=== PATIENT | male | born 1955 | race Caucasian/White ===

== ENCOUNTER 2017-04-10 09:34 | Emergency (ER) | payer BC, OTHER ==
[2017-04-10 09:42] VITALS: RESP 16; TEMP 98.3
--- NOTE | 2017-04-10 10:25 | ED PDOC ---
Arrival/HPI - General Chief Complaint: Upper Extremity Problem/Injury Time Seen by Provider: 04/10/17 09:45 Historian: Patient - History of Present Illness Narrative History of Present Illness (Text): 04/10/17 10:21 Patien t sts he has b/l shoulder and upper arm pain and stiffness every morning apon awakening. Sometimes these symptoms are associated with low back pain. Patient sts usually symptoms are getting better during the day, but come back in the morning again. 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 Patient sts he was seen by PMD and was told that pain is due to repetitive movement of his arms at work. Patient denies chest pain/SOB/fever. Patient is asymptomatic now. Activities at Onset: Sleeping Past Medical History - Provider Review Nursing Documentation Reviewed: Yes - Cardiac Hx Cardiac Disorders: Yes Hx Hypertension: Yes - Pulmonary Hx Respiratory Disorders: No - Neurological Hx Neurological Disorder: No - HEENT Hx HEENT Disorder: No - Renal Hx Renal Disorder: No - Endocrine/Metabolic Hx Endocrine Disorders: Yes Hx Diabetes Mellitus Type 2: Yes - Hematological/Oncological Hx Blood Disorders: No - Integumentary Hx Dermatological Disorder: No - Musculoskeletal/Rheumatological Hx Musculoskeletal Disorders: No - Gastrointestinal Hx Gastrointestinal Disorders: No - Genitourinary/Gynecological Hx Genitourinary Disorders: No - Psychiatric Hx Psychophysiologic Disorder: No Hx Substance Use: No - Surgical History Other/Comment: COLONOSCOPY - Anesthesia Hx Anesthesia: Yes Family/Social History - Physician Review Nursing Documentation Reviewed: Yes Family/Social History: Unknown Family HX Smoking Status: Never Smoked Hx Alcohol Use: Yes Hx Substance Use: No Allergies/Home Meds Allergies/Adverse Reactions: Allergies No Known Allergies Allergy (Verified 04/10/17 09:36) Home Medications: Home Meds Medication Instructions Recorded Confirmed metFORMIN [glucOPHAGE] 500 mg PO DAILY 05/03/16 04/10/17 Review of Systems - Physician Review All systems were reviewed & negative as marked: Yes - Review of Systems Musculoskeletal: Arthralgias, Myalgias Physical Exam Vital Signs Reviewed: Yes Vital Signs Temp Pulse Resp BP Pulse Ox 04/10/17 11:59 80 16 137/94 H 98 04/10/17 10:41 82 16 181/105 H 100 04/10/17 09:37 98.3 F 102 H 16 173/111 H 98 Blood Pressure: Hypertensive Appearance: Positive for: Well-Appearing, Non-Toxic, Comfortable Mental Status: Positive for: Alert and Oriented X 3 - Systems Exam Head: Present: Atraumatic, Normocephalic Neck: Present: Normal Range of Motion. No: MIDLINE TENDERNESS, Paraspinal Tenderness Respiratory/Chest: Present: Clear to Auscultation, Good Air Exchange. No: Accessory Muscle Use, Tender to Palpation Cardiovascular: Present: Regular Rate and Rhythm. No: Murmurs Abdomen: No: Tenderness, Distention Back: Present: Normal Inspection. No: Midline Tenderness, Paraspinal Tenderness Upper Extremity: Present: Normal Inspection, Normal ROM. No: Tenderness, Swelling Lower Extremity: Present: Normal Inspection, NORMAL PULSES, Normal ROM. No: Edema Neurological: Present: Speech Normal, Motor Func Grossly Intact, Normal Sensory Function Skin: Present: Warm, Normal Color. No: Rashes Psychiatric: Present: Alert, Oriented x 3 Medical Decision Making ED Course and Treatment: 04/10/17 10:30 XSray of b/l shoulders and LS spine are ordered. - Critical Care Narrative Critical Care (Text): 04/10/17 12:07 Xray of LS spine and shoulders ordered. Patient found to be hypertensive and was treated with Clonidine 0.2 mg with improvement. Patient is stable to be d/c home with PMD follow up. - RAD Interpretation Narrative RAD Interpretations (Text): 04/10/17 12:04 Accession No. : [id number] Patient Name / ID : SHANNON LEYVA / [id number] Exam Date : 04/10/2017 10:14:24 ( Approved ) Study Comment : Sex / Age : M / 61Y Creator : Zafar Rao MD Dictator : Zafar Rao MD Front Counter Clerk : Sales Audit Clerk : Zafar Rao MD Approver2 : Report Date : 04/10/2017 10:42:10 My Comment : PROCEDURE: Radiographs of the Right Shoulder HISTORY: pain COMPARISON: No prior. FINDINGS: BONES: Normal. No fracture. JOINTS: Normal. Glenohumeral and acromioclavicular joints preserved. No osteoarthritis. SOFT TISSUES: Normal. OTHER FINDINGS: None. IMPRESSION: Normal radiographs of the right shoulder. Accession No. : [id number] Patient Name / ID : SHANNON Hudson [id number] Exam Date : 04/10/2017 10:22:27 ( Approved ) Study Comment : Sex / Age : M / 61Y Creator : Zafar Rao MD Dictator : Zafar Rao MD Front Counter Clerk : Sales Audit Clerk : Zafar Rao MD Approver2 : Report Date : 04/10/2017 10:41:07 My Comment : PROCEDURE: Radiographs of the Left Shoulder HISTORY: pain atraumatic COMPARISON: No prior. FINDINGS: BONES: Normal. No fracture. JOINTS: Mild degenerative changes are seen in the acromioclavicular joint with some inferior spurs. SOFT TISSUES: Normal. OTHER FINDINGS: None. IMPRESSION: Mild degenerative changes in the acromioclavicular joint Accession No. : [id number] Patient Name / ID : SHANNON LEYVA / [id number] Exam Date : 04/10/2017 10:24:27 ( Approved ) Study Comment : Sex / Age : M / 61Y Creator : Zafar Rao MD Dictator : Zafar Rao MD Front Counter Clerk : Sales Audit Clerk : Zafar Rao MD Approver2 : Report Date : 04/10/2017 10:39:04 My Comment : PROCEDURE: Radiographs of the Lumbar Spine. HISTORY: atraumatic pain COMPARISON: No prior. FINDINGS: BONES: Normal alignment. No listhesis. No fracture. DISC SPACES: Unremarkable. OTHER FINDINGS: There is some bony sclerosis along the superior endplate of L2. This is most likely a benign sclerotic lesion. However a metastatic lesion cannot be excluded and clinical correlation is suggested IMPRESSION: Small area of bony sclerosis along the superior endplate of L2. No evidence of compression fracture or disc space narrowing Radiology Orders: 04/10/17 09:52 LS SPINE AP/LAT [RAD] Stat SHOULDER LEFT [RAD] Stat SHOULDER RIGHT [RAD] Stat [employer] Technician: Radiologist - Medication Orders Current Medication Orders: Discontinued Medications Clonidine HCl (Catapres) 0.2 mg PO STAT STA Stop: 04/10/17 10:57 Last Admin: 04/10/17 11:11 Dose: 0.2 mg Disposition/Present on Arrival - Present on Arrival Any Indicators Present on Arrival: No History of DVT/PE: No History of Uncontrolled Diabetes: No Urinary Catheter: No History of Decub. Ulcer: No History Surgical Site Infection Following: None - Disposition Have Diagnosis and Disposition been Completed?: Yes Diagnosis: Musculoskeletal pain Disposition: HOME/ ROUTINE Disposition Time: 12:09 Condition: STABLE Discharge Instructions (ExitCare): Musculoskeletal Pain (ED) Additional Instructions: Follow up with PMD within 1-2 days, consider Orthopedist / Rheumotologist consult. Return to ED if feel worse. Prescriptions: Naproxen [Naprosyn] 1 tab PO BID PRN #25 tab PRN Reason: Pain Famotidine [Pepcid] 20 mg PO BID #60 tab Referrals: Yayo Vallecillo MD [Primary Care Provider] - Follow up with primary Forms: [employer] (Hebrew)
--- NOTE | 2017-04-10 10:41 | RAD ---
PROCEDURE: Radiographs of the Lumbar Spine. HISTORY: atraumatic pain COMPARISON: No prior. FINDINGS: BONES: Normal alignment. No listhesis. No fracture. DISC SPACES: Unremarkable. OTHER FINDINGS: There is some bony sclerosis along the superior endplate of L2. This is most likely a benign sclerotic lesion. However a metastatic lesion cannot be excluded and clinical correlation is suggested IMPRESSION: Small area of bony sclerosis along the superior endplate of L2. No evidence of compression fracture or disc space narrowing
--- NOTE | 2017-04-10 10:42 | RAD ---
PROCEDURE: Radiographs of the Left Shoulder HISTORY: pain atraumatic COMPARISON: No prior. FINDINGS: BONES: Normal. No fracture. JOINTS: Mild degenerative changes are seen in the acromioclavicular joint with some inferior spurs. SOFT TISSUES: Normal. OTHER FINDINGS: None. IMPRESSION: Mild degenerative changes in the acromioclavicular joint
--- NOTE | 2017-04-10 10:43 | RAD ---
PROCEDURE: Radiographs of the Right Shoulder HISTORY: pain COMPARISON: No prior. FINDINGS: BONES: Normal. No fracture. JOINTS: Normal. Glenohumeral and acromioclavicular joints preserved. No osteoarthritis. SOFT TISSUES: Normal. OTHER FINDINGS: None. IMPRESSION: Normal radiographs of the right shoulder.
[2017-04-10 12:00] VITALS: BP 137/94; PULSE 80; O2SAT 98
== END 2017-04-10 12:30 | disposition home or self-care (01) ==
LOC: ED 09:34
DX: M79.1 Myalgia (principal)